=== PATIENT | female | born 2000 | race Two or more races ===

== ENCOUNTER 2021-08-22 16:21 | Emergency (ER) | payer OTHER ==
[~2021-08-22] VITALS: Ht 165.1 cm; Wt 95.4 kg
[2021-08-22 19:09] VITALS: BP 120/70
== END 2021-08-22 19:10 | disposition home or self-care (01) ==
LOC: EMS 16:31
DX: S83.92XA Sprain of unspecified site of left knee, initial encounter (principal); X50.1XXA Overexertion from prolonged static or awkward postures, initial encounter; Y93.89 Activity, other specified; Y92.89 Other specified places as the place of occurrence of the external cause; Y99.0 Civilian activity done for income or pay
CPT/HCPCS: 99283